=== PATIENT | female | born 1955 | race Caucasian/White ===

== ENCOUNTER → 2016-11-01 | Outpatient (CLI) | payer MEDICARE, OTHER ==
[~2016-11-01] MED LIST: AVPAK AZITHROM250 MG PO; BREO ELLIPTA 21 EACH IH; DOXYCYCLINE100 M1 PO; IBUPROFEN600 MG PO; K-DUR 1010 MEQ PO; KEFLEX 500MG.500 MG PO; LEVAQUIN 750 M750 MG PO; LEVOTHYROXIN0.175 MG PO; LEVOTHYROXINE0.15 M1 PO; LOSARTAN POTASS25 MG PO; PRAVASTATIN 20M20 MG PO; PREDNISONE 10MG10 MG PO; PREDNISONE 20MG20 MG PO; PROTONIX 40MG T40 MG PO; PROZAC40 MG PO; SINGULAIR10 MG PO; TAMIFLU 75MG CA75 MG PO; VICODIN 5/500 T1 TAB PO
[2016-11-01 10:50] LABS: LYMPH # 2.5 K/mm3 (0.7-4.5); LYMPH % 38.5 % (10-50.0)
[2016-11-01 11:42] LABS: HEMOGLOBIN 13.6 g/dL (12.2-16.2)
[2016-11-01 12:16] LABS: BUN 18 mg/dL (7-18)
[2016-11-01 12:19] LABS: GFR (ESTIMATED) 63 ML/MIN (59-)
[2016-11-03 14:40] LABS: Immunoglobulin A, Qn 139 mg/dL (87-352); Immunoglobulin G, Qn 991 mg/dL (700-1600); Immunoglobulin M, Qn 111 mg/dL (26-217)
== END ==
LOC: LAB 10:24
PROVIDERS: Internal Medicine
DX: R61 Generalized hyperhidrosis (principal); J18.9 Pneumonia, unspecified organism; R76.11 Nonspecific reaction to tuberculin skin test without active tuberculosis

== ENCOUNTER → 2017-01-01 | Outpatient (CLI) | payer MEDICARE, OTHER ==
--- NOTE | 2017-01-02 09:13 | RADIOLOGY REPORT PS360 ---
PROCEDURE: 2-D M-mode and color Doppler study INDICATIONS FOR THE TEST: Chest pain COPD Heart Murmur Tobacco Smoking Palpitations Fatigue Syncope Edema HypertensionXDiabetes Mellitus Rheumatic Fever SOBXDOE Obesity HyperlipidemiaX Family History HD Additional History RECENT PNEUMONIA, H/O ASTHMA PATIENT INFORMATION HEIGHT: 67 WEIGHT:198 GENDER: Female B/P:130/78 2-D/M-MODE INTERPRETATION: 2-D MEASUREMENTS OBSERVED VALUES IN CMS Right Ventricular Dimension (RVDd) 1.8 Interventricular Septum (Thickness)(IVsd) 1.1 Left Ventricular Internal Dimensions(LVIDd) 5.6 Left Ventricular Posterior Wall (Thickness)(LVPWd) 1.0 Aortic Root 2.9 Aortic Cusp Separation 1.7 Left Atrial Dimensions (LAD) 2.9 2D 1. Left atrium is mildly enlarged, left ventricle is normal size, there is mild concentric left ventricular hypertrophy, visually estimated ejection fraction 55% with no obvious regional wall motion abnormality. 2. The right atrium and right ventricle are normal size and contractility. 3. Aortic valve is thickened and calcified, leaflets continue to display good mobility, there is no aortic stenosis. 4. Mitral valve leaflets are minimally thickened ,there is no mitral stenosis. 5. The pulmonic valve is not well visualized. 6. No significant pericardial effusion noted. DOPPLER INTERROGATION: Doppler interrogation of the aortic mitral and tricuspid valve reveals presence of mild mitral and tricuspid regurgitation, calculated right ventricular systolic pressure is 37 mmHg as a mean right atrial pressure of 10 mmHg. Grade 1 diastolic dysfunction seen without tissue Doppler evidence of raised left atrial pressure. CONCLUSION: 1. Mildly enlarged left atrium, normal left ventricular size, mild concentric left ventricular hypertrophy, visually estimated ejection fraction 55% with no obvious regional wall motion abnormality, grade 1 diastolic dysfunction seen without Doppler evidence of raised left atrial pressure. 2. Mild mitral and tricuspid regurgitation, calculated right ventricular systolic pressure is 37 mmHg. 3. No significant pericardial effusion noted.
== END ==
LOC: RT 13:59
DX: R06.00 Dyspnea, unspecified (principal)

== ENCOUNTER → 2017-04-28 | Outpatient (CLI) | payer MEDICARE, OTHER ==
--- NOTE | 2017-04-28 15:25 | RADIOLOGY REPORT PS360 ---
CHEST(2 VIEWS-NOT PORTABLE) COMPARISON: PA and lateral chest 12/21/2016 HISTORY: Cough and crackles heard in lungs. TECHNIQUE: PA and lateral chest FINDINGS: The lung villa are well expanded and appear clear of infiltrate. There is minimal post inflammatory scarring in right lower lobe. There is a stable small hiatal hernia. Cardiac size is normal and the vascularity is normal and there is no pleural fluid. IMPRESSION: Nonacute chest findings
== END ==
LOC: RAD 13:07
DX: R09.89 Other specified symptoms and signs involving the circulatory and respiratory systems (principal); R05 Cough